=== PATIENT | male | born 1965 | race Caucasian/White ===

== ENCOUNTER 2021-01-21 18:06 | Inpatient (IN) | payer OTHER ==
[~2021-01-21] VITALS: Ht 175.3 cm; Wt 81.9 kg
[2021-01-21 19:13] LABS: Hematocrit 49.3 % (37.0-53.0); Hemoglobin 16.2 g/dL (13.5-17.5); Mean Corpuscular HGB 34.4 pg (26.0-34.0); Mean Corpuscular HGB Conc 32.9 g/dL (31.5-36.5); Mean Corpuscular Volume 105 fL (80-100); Mean Platelet Volume 9.3 fL (9.1-12.4); Platelet Count 462 K/mm3 (150-400); RDW Coefficient Variation 12.1 % (11.7-14.2); RDW Standard Deviation 47.6 fL (35.1-46.3); Red Blood Cell Count 4.71 M/mm3 (4.30-5.90)
[2021-01-21 19:40] LABS: Alanine Aminotransfer (ALT/SGP 24 U/L (12-78); Albumin, Blood 2.8 g/dL (3.4-5.0); Albumin/Globulin Ratio 0.6 (0.8-1.8); Alk Phos 109 U/L (50-136); Anion Gap 5 mmol/L (6-16); Aspartate Aminotrans (AST/SGOT 26 U/L (12-37); Bilirubin, Total 0.4 mg/dL (0.1-1.0); Blood Urea Nitrogen 16 mg/dL (8-24); Bun/Creatinine Ratio 17.3 (12.0-20.0); CO2, Blood 24 mmol/L (21-32); Calcium, Blood 8.7 mg/dL (8.5-10.1); Chloride, Blood 109 mmol/L (98-108); Creatinine, Blood 0.92 mg/dL (0.60-1.20); Ethanol (Alcohol), Blood, Med <3 mg/dL; Globulin, Blood 4.4 g/dL (2.2-4.0); Glomerular Filtration Rate >60 (60-); Glucose, Blood 144 mg/dL (70-99); Salicylate <1.7 mg/dL (2.8-20.0); Sodium, Blood 138 mmol/L (136-145); Total Protein, Blood 7.2 g/dL (6.4-8.2)
[2021-01-21 19:50] LABS: Acetaminophen, Random <2.0 ug/mL (10.0-30.0)
[2021-01-21 19:53] LABS: BAND PERCENT MAN 5 % (0-8); BASOPHILS PERCENT MAN 0 % (0-2); EOSINOPHILS PERCENT MAN 3 % (0-6); LYMPHOCYTES ABSOLUTE MAN 2.54 K/mm3 (0.84-5.20); LYMPHOCYTES PERCENT MAN 19 % (21-46); MONOCYTES PERCENT MAN 6 % (4-13); MYELOCYTE ABSOLUTE MAN 0.13 K/mm3 (0.00-0.00); MYELOCYTE PERCENT MAN 1 % (0-0); NEUTROPHILS ABSOLUTE MAN 9.51 K/mm3 (1.96-9.15); SEG NEUTROPHILS PERCENT MAN 66 % (41-73); TOTAL CELLS COUNTED 100
[2021-01-21 20:24] LABS: SARS-Cov-2 (COVID-19) PCR, MMC POSITIVE (NEGATIVE)
[2021-01-21 21:18] LABS: Source, Urine Clean Catch
[2021-01-21 21:27] LABS: Bilirubin, Urine Neg (Neg); Blood, Urine Neg (Neg); Glucose Qualitative, Urine Neg (Neg); Ketones, Urine Neg (Neg); Leukocyte Esterase, Urine 1+ (Neg); Nitrite, Urine Neg (Neg); Protein, Urine Neg (Neg); Urobilinogen, Urine NORM (Normal)
[2021-01-21 21:36] LABS: Appearance, Urine Clear (Clear); Color, Urine Yellow (P-Yellow)
[2021-01-21 21:37] LABS: Bacteria Not Seen /hpf; Red Blood Cells, Urine Not Seen /hpf (0-2); Squamous Epithelial Cells Not Seen /hpf (Few); White Blood Cells, Urine 0-2 /hpf (0-5)
[2021-01-21 21:43] LABS: U Amphetamine Screen DETECTED; U Barbituate Screen Not Detected; U Benzodiazapine Screen Not Detected; U Buprenorphine Screen Not Detected; U Cannabinoids Screen Not Detected; U Cocaine Screen Not Detected; U Methadone Screen Not Detected; U Methamphetamine Screen DETECTED; U Opiates Screen Not Detected; U Oxycodone Screen Not Detected; U Phencyclidine Screen Not Detected; U Propoxyphene Screen Not Detected
[2021-01-22] MEDS ORDERED: DOXY100 PO (00:10)
[2021-01-22] MEDS ORDERED: IBUP600 PO (00:10)
--- NOTE | 2021-01-22 01:15 | NUR ---
Patient arrived to [facility] at 2302. Patient is able to transport himself from one bed to another. Lungs clear up top and dim in lower, nonproductive cough. History of IV drug use of methamphetamine. L knee wound that he was previously prescribed antibiotics for and on them currently, he states they said it was MRSA. Patient is calm and sleepy.
--- NOTE | 2021-01-22 01:39 | NUR ---
Patient possessions locked in bedside closet. Camo blanket, (1) [employer] black, white roll cutter, $4.61, pink covid screen slip, set of 2 keys with green whistle, pair of white socks, Light blue tshirt, Old wristband, black hoodie, jayashree pack, pocket knife, [employer] pin, ebt card, discover card, joselyn card, pieces of paper with numbers, pair of black champion sneakers, prescription ibuprofen bottle with ibuprofen and doxycycline.
--- NOTE | 2021-01-22 02:56 | NUR ---
A/OX4, CALM AND COOPERATIVE. VERY LETHARGIC AND SLEEPY. PT SAYS HAS NOT USED METHAMPHETAMINE SINCE 01/19, AND STATES ONLY HAS BEEN USING D/T HIM NOT HAVING HIS ADHD MEDICATIONS. ADMITS TO USING VIA IV ROUTE WITH MULTIPLE SMALL NODULES NOTED FROM MISSING THE VEIN. PATIENT HAD LARGE AMOUNT OF DIARRHEA. PATIENT STATES THAT NOTHING HAS CHANGED FAR INTENT OF SUICIDE SINCE HIS ADMISSION. PATIENTS SKIN COLOR IS STEFFI IN COLOR AND WARM TO TOUCH - NO FEVER. VSS. WILL REPORT TO DAYSHIFT RN.
[2021-01-22 04:01] LABS: Hematocrit 49.2 % (37.0-53.0); Hemoglobin 16.1 g/dL (13.5-17.5); Mean Corpuscular HGB Conc 32.7 g/dL (31.5-36.5); Mean Corpuscular Volume 104 fL (80-100); NRBC ABSOLUTE 0.02 K/mm3 (0.00-0.02); NRBC Auto 0.2 /100 WBC (0.0-0.2); Platelet Count 417 K/mm3 (150-400); RDW Coefficient Variation 12.2 % (11.7-14.2); RDW Standard Deviation 47.2 fL (35.1-46.3); Red Blood Cell Count 4.73 M/mm3 (4.30-5.90); White Blood Cell Count 12.76 K/mm3 (4.00-11.30)
[2021-01-22 04:19] LABS: Alanine Aminotransfer (ALT/SGP 23 U/L (12-78); Albumin, Blood 2.6 g/dL (3.4-5.0); Albumin/Globulin Ratio 0.6 (0.8-1.8); Alk Phos 89 U/L (50-136); Anion Gap 2 mmol/L (6-16); Aspartate Aminotrans (AST/SGOT 28 U/L (12-37); Bilirubin, Total 0.4 mg/dL (0.1-1.0); Blood Urea Nitrogen 16 mg/dL (8-24); Bun/Creatinine Ratio 15.7 (12.0-20.0); CO2, Blood 26 mmol/L (21-32); Calcium, Blood 8.4 mg/dL (8.5-10.1); Chloride, Blood 108 mmol/L (98-108); Creatinine, Blood 1.02 mg/dL (0.60-1.20); Globulin, Blood 4.5 g/dL (2.2-4.0); Glomerular Filtration Rate >60 (60-); Glucose, Blood 107 mg/dL (70-99); Potassium, Blood 4.5 mmol/L (3.5-5.5); Sodium, Blood 136 mmol/L (136-145); Total Protein, Blood 7.1 g/dL (6.4-8.2)
[2021-01-22 04:39] LABS: BAND PERCENT MAN 6 % (0-8); BASOPHILS PERCENT MAN 0 % (0-2); EOSINOPHILS ABSOLUTE MAN 0.12 K/mm3 (0.00-0.68); EOSINOPHILS PERCENT MAN 1 % (0-6); LYMPHOCYTES PERCENT MAN 11 % (21-46); METAMYELOCYTE ABSOLUTE MAN 0.76 K/mm3 (0.00-0.00); METAMYELOCYTE PERCENT MAN 6 % (0-0); MONOCYTES ABSOLUTE MAN 1.53 K/mm3 (0.16-1.47); MONOCYTES PERCENT MAN 12 % (4-13); MYELOCYTE ABSOLUTE MAN 0.38 K/mm3 (0.00-0.00); MYELOCYTE PERCENT MAN 3 % (0-0); NEUTROPHILS ABSOLUTE MAN 8.54 K/mm3 (1.96-9.15); SEG NEUTROPHILS PERCENT MAN 61 % (41-73); TOTAL CELLS COUNTED 100
--- NOTE | 2021-01-22 17:04 | NUR ---
SHIFT SUMMARY PT A/O X4 AND COOPERATIVE OF CARE. VSS T/O SHIFT WITH O2 SATS > 94% T/O SHIFT. PT HAS BEEN ON SUICIDE PRECAUTIONS ENTIRE SHIFT WITH NO REPORTS OF SUICIDAL THOUGHTS TODAY. PT HAS BEEN USING THE URINAL TO ELIMINATE AND HAS BEDSIDE COMMODE FOR BOWEL MOVEMENTS. PT HAD REPORT OF GENERALIZED ACHING PAIN THAT WAS TREATED PER EMAR. NO REPORT OF CHEST PAIN/PRESSURE. NO REPORT OF SOB.
[2021-01-22 22:57] LABS: Adenovirus F 40/41 Not Detected (NOT DETECT); Astrovirus Not Detected (NOT DETECT); Campylobacter Sp Not Detected (NOT DETECT); Cryptosporidium Not Detected (NOT DETECT); Cyclospora Cayetanensis Not Detected (NOT DETECT); E. Coli O157 Not Detected (NOT DETECT); Entamoeba Histolytica Not Detected (NOT DETECT); Enteroaggregative E. coli-EAEC Not Detected (NOT DETECT); Enteropathogenic E. coli-EPEC Not Detected (NOT DETECT); Enterotoxigenic E. coli-ETEC Not Detected (NOT DETECT); Giardia Lamblia Not Detected (NOT DETECT); Norovirus GI/GII Not Detected (NOT DETECT); Plesiomonas Shigelloides Not Detected (NOT DETECT); Rotavirus A Not Detected (NOT DETECT); Salmonella Sp Not Detected (NOT DETECT); Sapovirus Not Detected (NOT DETECT); Shiga Toxin-prod E. coli-STEC Not Detected (NOT DETECT); Shigella/Enteroin E. coli-EIEC Not Detected (NOT DETECT); Vibrio Cholerae Not Detected (NOT DETECT); Vibrio Sp Not Detected (NOT DETECT); Yersinia Enterocolitica Not Detected (NOT DETECT)
--- NOTE | 2021-01-23 18:11 | NUR ---
SHIFT SUMMARY ASSUMED CARE OF PATIENT AT APPROX 0700. PT ALERT, ORIENTED x4; CALM AND COOPERATIVE WITH CARE. PT DENIES SI THOUGHTS AND HAS NO PLANS TO HARM SELF; PT SPEAKS OF HIS ASPIRATION TO GO TO REHAB, GET A JOB, CAR, HOME AND PERSONAL BELONGINGS. PT REPORTS GENERALIZED BODY ACHES T/O SHIFT, MEDICATED PER EMAR. PT DENIES CHEST PAIN, SOB, NASUEA AND DIZZINESS. PT RECEIVING IV ANTIBIOTICS. PT CONTINUES ON SI HOLD AND ON CAMERA MONITORING. VSS. NO OTHER ACUTE CHANGES NOTED. WILL CONTINUE TO MONITOR UNTIL REPORT GIVEN TO ONCOMING RN.
[2021-01-24 01:10] LABS: CHLAMYDIA TRACHOMATIS, NAA Negative (Negative)
--- NOTE | 2021-01-24 06:08 | NUR ---
SHIFT SUMMARY PATIENT IS RESTING COMFORTABLY IN BED COMFORTABLY. BED IS IN LOW POSITION. CALL LIGHT IS IN REACH. PATIENT IS STILL ON SUICIDE PRECAUTIONS. VITALS WERE STABLE. PATIENT IS CURRENTLY IN A CAMERA MONITORING ROOM. NO ACUTE CHANGES DURING THE NIGHT. VOIDS IN THE URINAL. PT IS ON ROOM AIR. ALERT AND ORIENTED X4. LOVES TO EAT HIS SNACKS AND FREQUENTLY ASKS FOR SNACKS. WILL CONTINUE TO MONITOR REPORT WILL BE GIVEN TO DAY SHIFT RN.
[2021-01-24] MEDS ORDERED: ACET325 PO (10:55)
[2021-01-24] MEDS ORDERED: PARO20 PO (10:56)
--- NOTE | 2021-01-24 11:02 | NUR ---
CARE NOTE THIS NURSE SPOKE W/ DOCTOR [facility] APPROX. 1050, STATED HOSPITALIST WAS OK TO DISCHARGE PATIENT AND REMOVE SI HOLD. CHARGE NURSE SRIKANTH GREENWOOD NOTIFIED AND FORM IS NOW BEING SENT TO DR LACEY TO REMOVE HOLD.
--- NOTE | 2021-01-24 11:39 | NUR ---
Suicide safety plan completed. Pt has plans to return to the [place]. He plans to get his Paxil script. Case management and RN informed patient interested in methadone cinic. He was informed of [facility], walk in clinic. Patient denied suicidal intent or ideation. Sherley Luis
--- NOTE | 2021-01-24 17:05 | NUR ---
DISCHARGE NOTE PT WAS ALERT AND ORIENTED X 4. ERWIN MALAGON MET WITH PATIENT AND CREATED A SUICIDE ACTION PLAN THAT PATIENT KEPT ALONG WITH OTHER DISCHARGE DOCUMENTS. PT WAS STABLE UPON DISCHARGE. HE WAS PLEASANT AND COOPERATIVE WITH CARE. THIS NURSE WENT OVER DISCHARGE INSTRUCTIONS W/ PATIENT INCLUDING NEW MEDICATION REGIMEN, MEDICATIONS TO STOP TAKING, FOLLOW UP APPOINTMENTS, IF PATIENT WAS FEELING SUICIDAL WHERE TO SEEK HELP, INSTRUCTIONS FOR QUARANTINING DUE TO COVID. ALL OF PATIENT BELIONGINGS WE WITH PATIENT WHEN HE LEFT THE ROOM. PT LEFT APPROX. 1616 AND WAS ESCORTED BY DOMINGA STEINER RN.
== END 2021-01-24 16:16 | disposition home or self-care (01) | DRG 178 ==
LOC: ER 18:06 → PCU 21:54
PROVIDERS: Emergency Medicine; ADMIT Internal Medicine
PROC: 8E0ZXY6 Isolation (ICD-10-PCS; principal; 2021-01-21)
PROC: 3E02340 Introduction of Influenza Vaccine into Muscle, Percutaneous Approach (ICD-10-PCS; 2021-01-21)
PROC: XW033G6 Introduction of REGN-COV2 Monoclonal Antibody into Peripheral Vein, Percutaneous Approach, New Technology Group 6 (ICD-10-PCS; 2021-01-21)
DX: U07.1 COVID-19 (principal); R45.851 Suicidal ideations; L97.329 Non-pressure chronic ulcer of left ankle with unspecified severity; A08.39 Other viral enteritis; L03.114 Cellulitis of left upper limb; Z23 Encounter for immunization; F90.9 Attention-deficit hyperactivity disorder, unspecified type; F32.A Depression, unspecified; Z59.00 Homelessness unspecified; F17.290 Nicotine dependence, other tobacco product, uncomplicated; F15.90 Other stimulant use, unspecified, uncomplicated
CPT/HCPCS: 0097U; 36415; 71045; 73562-LT; 80053; 81001; 85025; 86592; 87491; 87591; 99285; A9270; G0480; J0295; J1650; J2405; J7030; M0243; Q0243; Q3014; U0004

== ENCOUNTER 2021-04-08 19:16 | Emergency (ER) | payer OTHER ==
[~2021-04-08] VITALS: Ht 175.3 cm; Wt 77.1 kg
[~2021-04-08 19:16] MED LIST: ACET325 PO; DOXY100 PO; IBUP600 PO; PARO20 PO
[2021-04-08] MEDS ORDERED: TESTOST CYP (19:50)
== END 2021-04-08 20:56 | disposition home or self-care (01) ==
LOC: ER 19:16
DX: F19.10 Other psychoactive substance abuse, uncomplicated (principal); F29 Unspecified psychosis not due to a substance or known physiological condition
CPT/HCPCS: 36415; 93005; 93010; 99283-25

== ENCOUNTER 2021-07-06 00:27 | Emergency (ER) | payer OTHER ==
[~2021-07-06 00:27] MED LIST changes: +TESTOST CYP
== END 2021-07-06 01:06 | disposition left against medical advice (07) ==
LOC: ER 00:27
DX: Z53.21 Procedure and treatment not carried out due to patient leaving prior to being seen by health care provider (principal)

== ENCOUNTER 2022-06-11 02:58 | Emergency (ER) | payer OTHER ==
[~2022-06-11] VITALS: Ht 175.3 cm; Wt 81.7 kg
[~2022-06-11 02:58] MED LIST changes: +ONDA4ODT MM
[2022-06-11] MEDS ORDERED: DEXT5ER PO (03:09)
[2022-06-11 04:08] LABS: BASOPHILS PERCENT AUTO 1 % (0-2); EOSINOPHILS ABSOLUTE AUTO 0.23 K/mm3 (0.00-0.68); EOSINOPHILS PERCENT AUTO 3 % (0-6); Hematocrit 38.4 % (37.0-53.0); Hemoglobin 13.2 g/dL (13.5-17.5); IMMATURE GRAN ABSOLUTE AUTO 0.02 K/mm3 (0.00-0.10); IMMATURE GRAN PERCENT AUTO 0 % (0-1); LYMPHOCYTES ABSOLUTE AUTO 2.79 K/mm3 (0.84-5.20); LYMPHOCYTES PERCENT AUTO 32 % (21-46); MONOCYTES PERCENT AUTO 8 % (4-13); Mean Corpuscular HGB 33.5 pg (26.0-34.0); Mean Corpuscular HGB Conc 34.4 g/dL (31.5-36.5); Mean Corpuscular Volume 98 fL (80-100); Mean Platelet Volume 10.3 fL (9.1-12.4); NEUTROPHILS ABSOLUTE AUTO 4.82 K/mm3 (1.96-9.15); NEUTROPHILS PERCENT AUTO 56 % (41-73); Platelet Count 311 K/mm3 (150-400); RDW Coefficient Variation 11.5 % (11.7-14.2); RDW Standard Deviation 41.8 fL (35.1-46.3); Red Blood Cell Count 3.94 M/mm3 (4.30-5.90); White Blood Cell Count 8.66 K/mm3 (4.00-11.30)
[2022-06-11 04:31] LABS: Acetaminophen, Random <2.0 ug/mL (10.0-30.0)
[2022-06-11 04:32] LABS: Salicylate <1.7 mg/dL (2.8-20.0)
[2022-06-11 04:41] LABS: Alanine Aminotransfer (ALT/SGP 37 U/L (12-78); Albumin, Blood 3.8 g/dL (3.4-5.0); Albumin/Globulin Ratio 1.2 (0.8-1.8); Alk Phos 79 U/L (50-136); Anion Gap 6 mmol/L (6-16); Aspartate Aminotrans (AST/SGOT 52 U/L (12-37); Bilirubin, Total 0.6 mg/dL (0.1-1.0); Blood Urea Nitrogen 24 mg/dL (8-24); Bun/Creatinine Ratio 17.1 (12.0-20.0); CO2, Blood 29 mmol/L (21-32); Calcium, Blood 8.5 mg/dL (8.5-10.1); Chloride, Blood 106 mmol/L (98-108); Globulin, Blood 3.2 g/dL (2.2-4.0); Glomerular Filtration Rate 58 (60-); Glucose, Blood 85 mg/dL (70-99); Potassium, Blood 3.6 mmol/L (3.5-5.5); Sodium, Blood 141 mmol/L (136-145)
[2022-06-11 04:42] LABS: Ethanol (Alcohol), Blood, Med <3 mg/dL
[2022-06-11] MEDS ORDERED: RISP1 PO (12:06)
== END 2022-06-11 12:19 | disposition home or self-care (01) ==
LOC: ER 02:58
PROVIDERS: Student in an Organized Health Care Education/Training Program
DX: F15.10 Other stimulant abuse, uncomplicated (principal); F29 Unspecified psychosis not due to a substance or known physiological condition; F17.210 Nicotine dependence, cigarettes, uncomplicated
CPT/HCPCS: 36415; 80053; 85025; 93005; 93010; A9270; G0480

== ENCOUNTER 2022-07-03 03:12 | Emergency (ER) | payer OTHER ==
[~2022-07-03] VITALS: Ht 175.3 cm; Wt 76.7 kg
[~2022-07-03 03:12] MED LIST changes: +DEXT5ER PO; +RISP1 PO
[2022-07-03 05:08] LABS: Influenza A, PCR NEGATIVE (NEGATIVE); Influenza B, PCR NEGATIVE (NEGATIVE); Resp Syncytial Virus, PCR NEGATIVE (NEGATIVE); SARS-Cov-2 (COVID-19) PCR, MMC NEGATIVE (NEGATIVE)
== END 2022-07-03 05:03 | disposition home or self-care (01) ==
LOC: ER 03:12
PROVIDERS: Student in an Organized Health Care Education/Training Program
DX: M54.2 Cervicalgia (principal); M54.50 Low back pain, unspecified; Z79.899 Other long term (current) drug therapy; F17.210 Nicotine dependence, cigarettes, uncomplicated
CPT/HCPCS: 0241U; 96372; 99284-25; A9270; J1885

== ENCOUNTER 2022-09-23 06:25 | Emergency (ER) | payer OTHER ==
[~2022-09-23] VITALS: Ht 175.3 cm; Wt 77.1 kg
[2022-09-23] MEDS ORDERED: ONDA4ODT MM (06:53)
[2022-09-23] MEDS ORDERED: AMPDEX15CR (06:58)
[2022-09-23 07:07] VITALS: BP 117/89
== END 2022-09-23 07:11 | disposition home or self-care (01) ==
LOC: ER 06:25
DX: A08.4 Viral intestinal infection, unspecified (principal); F17.210 Nicotine dependence, cigarettes, uncomplicated
CPT/HCPCS: 99284

== ENCOUNTER 2022-10-09 18:11 | Emergency (ER) | payer OTHER ==
[~2022-10-09] VITALS: Ht 175.3 cm; Wt 72.6 kg
[~2022-10-09 18:11] MED LIST changes: +AMPDEX15CR
[2022-10-09 19:40] LABS: Albumin, Blood 3.7 g/dL (3.4-5.0); Albumin/Globulin Ratio 1.1 (0.8-1.8); Bilirubin, Total 0.5 mg/dL (0.1-1.0); Bun/Creatinine Ratio 24.7 (12.0-20.0); Calcium, Blood 8.9 mg/dL (8.5-10.1); Creatinine, Blood 0.81 mg/dL (0.60-1.20); Globulin, Blood 3.4 g/dL (2.2-4.0); Potassium, Blood 3.8 mmol/L (3.5-5.5); Total Protein, Blood 7.1 g/dL (6.4-8.2)
[2022-10-09 20:22] VITALS: BP 108/73
== END 2022-10-09 22:07 | disposition left against medical advice (07) ==
LOC: ER 18:11
PROVIDERS: Student in an Organized Health Care Education/Training Program
DX: R11.2 Nausea with vomiting, unspecified (principal); R19.7 Diarrhea, unspecified; R10.9 Unspecified abdominal pain; Z53.21 Procedure and treatment not carried out due to patient leaving prior to being seen by health care provider
CPT/HCPCS: 80053; 83690; 99281

== ENCOUNTER 2022-11-04 17:49 | Emergency (ER) | payer OTHER ==
[~2022-11-04] VITALS: Ht 175.3 cm; Wt 77.1 kg
[2022-11-04 18:34] VITALS: BP 106/78
== END 2022-11-04 19:54 | disposition home or self-care (01) ==
LOC: ER 17:49
DX: T67.5XXA Heat exhaustion, unspecified, initial encounter (principal); E86.0 Dehydration; F17.200 Nicotine dependence, unspecified, uncomplicated; X58.XXXA Exposure to other specified factors, initial encounter
CPT/HCPCS: 99284

== ENCOUNTER 2022-11-09 13:28 | Emergency (ER) | payer OTHER ==
[~2022-11-09] VITALS: Ht 175.3 cm; Wt 77.1 kg
[2022-11-09 13:54] VITALS: BP 92/50
[2022-11-09 14:47] LABS: BASOPHILS ABSOLUTE AUTO 0.04 K/mm3 (0.00-0.23); BASOPHILS PERCENT AUTO 0 % (0-2); EOSINOPHILS ABSOLUTE AUTO 0.04 K/mm3 (0.00-0.68); EOSINOPHILS PERCENT AUTO 0 % (0-6); Hematocrit 36.9 % (37.0-53.0); Hemoglobin 12.6 g/dL (13.5-17.5); IMMATURE GRAN ABSOLUTE AUTO 0.06 K/mm3 (0.00-0.10); IMMATURE GRAN PERCENT AUTO 1 % (0-1); LYMPHOCYTES ABSOLUTE AUTO 0.61 K/mm3 (0.84-5.20); LYMPHOCYTES PERCENT AUTO 5 % (21-46); MONOCYTES ABSOLUTE AUTO 0.07 K/mm3 (0.16-1.47); MONOCYTES PERCENT AUTO 1 % (4-13); Mean Corpuscular HGB 34.1 pg (26.0-34.0); Mean Corpuscular HGB Conc 34.1 g/dL (31.5-36.5); Mean Corpuscular Volume 100 fL (80-100); Mean Platelet Volume 10.5 fL (9.1-12.4); NEUTROPHILS ABSOLUTE AUTO 10.63 K/mm3 (1.96-9.15); NEUTROPHILS PERCENT AUTO 93 % (41-73); Platelet Count 260 K/mm3 (150-400); RDW Coefficient Variation 11.6 % (11.7-14.2); Red Blood Cell Count 3.69 M/mm3 (4.30-5.90); White Blood Cell Count 11.45 K/mm3 (4.00-11.30)
[2022-11-09 15:05] LABS: Albumin, Blood 3.1 g/dL (3.4-5.0); Albumin/Globulin Ratio 1.1 (0.8-1.8); Bilirubin, Total 0.3 mg/dL (0.1-1.0); Bun/Creatinine Ratio 19.3 (12.0-20.0); Calcium, Blood 8.2 mg/dL (8.5-10.1); Creatinine, Blood 0.99 mg/dL (0.60-1.20); Globulin, Blood 2.9 g/dL (2.2-4.0); Potassium, Blood 3.7 mmol/L (3.5-5.5)
[2022-11-09] MEDS ORDERED: ONDA4ODT MM (17:04)
== END 2022-11-09 16:47 | disposition home or self-care (01) ==
LOC: ER 13:28
PROVIDERS: Physician Assistant
DX: R19.7 Diarrhea, unspecified (principal); R11.2 Nausea with vomiting, unspecified; F17.210 Nicotine dependence, cigarettes, uncomplicated; Z79.899 Other long term (current) drug therapy
CPT/HCPCS: 80053; 83690; 85025; A9270

== ENCOUNTER 2023-02-26 11:16 | Emergency (ER) | payer OTHER ==
[~2023-02-26] VITALS: Ht 172.7 cm; Wt 68.0 kg
== END 2023-02-26 11:58 | disposition home or self-care (01) ==
LOC: ER 11:16
DX: F41.9 Anxiety disorder, unspecified (principal); F17.210 Nicotine dependence, cigarettes, uncomplicated; Z79.899 Other long term (current) drug therapy
CPT/HCPCS: 99283

== ENCOUNTER 2023-05-10 04:18 | Emergency (ER) | payer OTHER ==
[~2023-05-10] VITALS: Ht 175.3 cm; Wt 77.1 kg
[2023-05-10 04:30] VITALS: BP 119/76
[2023-05-10] MEDS ORDERED: OLANZapine 5 MG Tab PO ONE (05:40)
[2023-05-10] MEDS ORDERED: HyDROXyzine HCl 25 MG Tab PO ONE (05:45)
[2023-05-10] MEDS ORDERED: Atarax10 MG PO (05:49)
== END 2023-05-10 05:45 | disposition home or self-care (01) ==
LOC: ER 04:18
DX: R44.0 Auditory hallucinations (principal); F15.90 Other stimulant use, unspecified, uncomplicated; F41.9 Anxiety disorder, unspecified; F17.200 Nicotine dependence, unspecified, uncomplicated
CPT/HCPCS: 99284; A9270

== ENCOUNTER 2024-06-08 08:59 | Emergency (ER) | payer OTHER ==
[~2024-06-08] VITALS: Ht 175.3 cm; Wt 83.9 kg
[~2024-06-08 08:59] MED LIST changes: +Atarax10 MG PO
[2024-06-08 10:34] LABS: BASOPHILS ABSOLUTE AUTO 0.07 K/mm3 (0.00-0.23); BASOPHILS PERCENT AUTO 1 % (0-2); EOSINOPHILS ABSOLUTE AUTO 0.22 K/mm3 (0.00-0.68); EOSINOPHILS PERCENT AUTO 3 % (0-6); Hematocrit 42.4 % (37.0-53.0); Hemoglobin 14.8 g/dL (13.5-17.5); IMMATURE GRAN ABSOLUTE AUTO 0.03 K/mm3 (0.00-0.10); IMMATURE GRAN PERCENT AUTO 0 % (0-1); LYMPHOCYTES ABSOLUTE AUTO 2.07 K/mm3 (0.84-5.20); LYMPHOCYTES PERCENT AUTO 27 % (21-46); MONOCYTES ABSOLUTE AUTO 0.59 K/mm3 (0.16-1.47); MONOCYTES PERCENT AUTO 8 % (4-13); Mean Corpuscular HGB 33.2 pg (26.0-34.0); Mean Corpuscular HGB Conc 34.9 g/dL (31.5-36.5); Mean Corpuscular Volume 95 fL (80-100); Mean Platelet Volume 10.7 fL (9.1-12.4); NEUTROPHILS ABSOLUTE AUTO 4.65 K/mm3 (1.96-9.15); NEUTROPHILS PERCENT AUTO 61 % (41-73); Platelet Count 308 K/mm3 (150-400); RDW Coefficient Variation 11.4 % (11.7-14.2); RDW Standard Deviation 39.4 fL (35.1-46.3); Red Blood Cell Count 4.46 M/mm3 (4.30-5.90); White Blood Cell Count 7.63 K/mm3 (4.00-11.30)
[2024-06-08] MEDS ORDERED: OLAN5 PO (10:49)
[2024-06-08] MEDS ORDERED: Adderall 20 MG20 MG PO (10:49)
[2024-06-08] MEDS ORDERED: METHADONE HCL10 M3 PO (10:50)
[2024-06-08 10:54] LABS: Source, Urine Clean Catch
[2024-06-08 11:06] LABS: Albumin/Globulin Ratio 1.2 (0.8-1.8); Bilirubin, Total 0.5 mg/dL (0.1-1.0); Bun/Creatinine Ratio 15.5 (12.0-20.0); Calcium, Blood 9.4 mg/dL (8.5-10.1); Creatinine, Blood 0.91 mg/dL (0.60-1.20); Globulin, Blood 3.3 g/dL (2.2-4.0); Potassium, Blood 3.9 mmol/L (3.5-5.5); Total Protein, Blood 7.3 g/dL (6.4-8.2)
[2024-06-08] MEDS ORDERED: Mag Hydrox/AL Hydrox/Simeth 30 ML UDC PO ONE (11:25)
[2024-06-08 11:34] LABS: Appearance, Urine Clear (Clear); Bilirubin, Urine Neg (Neg); Blood, Urine Neg (Neg); Color, Urine Yellow (P-Yellow); Glucose Qualitative, Urine Neg (Neg); Ketones, Urine Neg (Neg); Leukocyte Esterase, Urine Neg (Neg); Nitrite, Urine Neg (Neg); Protein, Urine Neg (Neg); Specific Gravity, Urine 1.015 (1.003-1.022); Urobilinogen, Urine NORM (Normal)
[2024-06-08] MEDS ORDERED: OMEP20ER PO (11:54)
[2024-06-08 12:00] VITALS: BP 124/84
== END 2024-06-08 12:03 | disposition home or self-care (01) ==
LOC: ER 08:59
PROVIDERS: Physician Assistant
DX: K21.9 Gastro-esophageal reflux disease without esophagitis (principal); R07.89 Other chest pain; Z79.899 Other long term (current) drug therapy; F17.200 Nicotine dependence, unspecified, uncomplicated; Z86.16 Personal history of COVID-19
CPT/HCPCS: 76705; 80053; 81003; 83690; 85025; 99284-25; A9270